=== PATIENT | male | born 1985 ===

== ENCOUNTER 2024-07-10 12:55 | Outpatient (AMB) | payer OTHER, SELFPAY ==
--- NOTE | 2024-07-10 13:00 | AM.OFFWIN_ITS ---
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 Patient has taken Tylenol and Benadryl for his pain and the swelling. Patient states the pain was significantly worse yesterday but has mostly resolved throughout the morning today. Patient denies having any headaches, visual changes, discharge from his eyes, fevers or chills. Patient denies any injury or trauma to his right eye prior to the onset of his symptoms. [facility] Social History Patient Tobacco Use Status: Never used Tobacco Review of Systems Const All systems reviewed & are unremarkable except as noted in HPI and below Eyes Denies blind spots, Denies blurry vision, Denies exophthalmos, Denies change in vision, Denies decreased night vision, Denies diplopia, Denies eye discharge, Denies other visual disturbances and Reports eye pain (swelling right upper eyelid) ENT Reports no additional complaints Card Reports no additional complaints Resp Reports no additional complaints Reports no additional complaints Musc Reports no additional complaints Skin/Breast Reports system reviewed and no additional complaints, except as documented and Reports as per HPI (mild redness right upper eyelid) Neuro Reports no additional complaints Psych Reports no additional complaints Endo Reports no additional complaints Philipp/Lymph Reports no additional complaints Aller/Immun Reports no additional complaints Physical Exam Vital Signs: BMI result Body Mass Index 33.4 Const General: cooperative, healthy appearing, comfortable, no acute distress, well developed, alert, awake and Physically active Nutritional Appearance: overweight Orientation/consciousness: patient oriented x3 Limitations: no limitations HEENT Head: Yes normal to inspection and Yes normocephalic Eyes Other: Right upper eyelid: right upper eyelid edematous with erythema noted superior of the mucocutaneous border with mild discomfort to palpation; 1mm purulent les ion noted at mucocutaneous border of right upper eyelid Visual Acuña: normal visual acuña by confrontation Alignment and Position: alignment normal Periorbital: periorbital findings normal Eyelids: Yes eyelid abnormality (as above) Conjunctivae: conjunctivae normal Sclerae: sclerae normal Corneas: corneas normal Pupils: Equal, round and reactive pupils present EOM: EOMs intact bilaterally Direct Ophthalmoscopy: normal light reflex and no photophobia Neuro General: patient oriented x3 Cranial nerves: Yes Equal, round and reactive pupils present Psych Appearance: grossly normal Mental Status: mental status grossly normal Insight: Good insight present (Psych) Judgement: Good judgement present (Psych) Assessment & Plan Assessment & Plan (1) Hordeolum externum (stye): Comment: No clinical evidence of a periorbital cellulitis or conjunctivitis. Patient is afebrile and in no acute distress. Code(s): H00.019 - Hordeolum externum unspecified eye, unspecified eyelid Qualifiers: Laterality: right Eyelid: upper Qualified Code(s): H00.011 - Hordeolum externum right upper eyelid Plan: Patient is encouraged to use warm compresses (tea bag or washcloth) 5 times daily and Tylenol as needed for discomfort. Patient will follow up at the walk- in for any worsening symptoms. Coding Level of Care Code Est Pt Level 3 (24175) Diagnoses Hordeolum externum of right upper eyelid H00.011 Laterality: right Eyelid: upper Time Spent (min) 20
[2024-07-10 13:01] VITALS: BP 120/78; PULSE 78; TEMP 36.7; O2SAT 99; BMI 33.4
--- OUTSIDE RECORDS SUMMARY | 2024-07-10 15:40 | XMS_ITS | Clinical Summary ---
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 Muscle spasm 04/02/2021 Polyarthralgia 04/02/2021 Obesity (BMI 35.0-39.9 without comorbidity) 10/16 Immunizations Name Administration Dates Next Due Tdap Tetanus diptheria acell ular pertussis (Boostrix; Adacel) 7yo and older 11/02/2012 Surgical History Surgery Date Site/Laterality Comments OTHER SURGICAL HISTORY PROCEDURE: DENIES PREVIOUS SURGERY Medical History Medical History Date Comments Foot pain DX:Foot pain Family History Medical History Relation Name Comments No Known Problems Father Arthritis Maternal Grandmother fibromy algia, DMII No Known Problems Mother Relation Name Status Comments Father Alive Maternal Grandmother Mother Alive No contact with parents Paternal Grandfather DM Paternal Grandmother Alive DM Sister 1 Alive Healthy Sister 2 Alive Healthy Son 1 Alive Healthy Son 2 Alive Healthy Social History Tobacco Use Types Packs/Day Years Used Date Smoking Tobacco: Never Smokeless Tobacco: Never Alcohol Use Standard Drinks/Week Comments Yes 0 (1 standard drink = 0.6 oz pur e alcohol) Sex and Gender Information Value Date Recorded Sex Assigned at Not on file Legal Sex Male 9:06 AM EST Gender Identity Not on file Sexual Orientation Not on file Obstetrics History Last Filed Vital Signs Vital Sign Reading Time Taken Comments Blood Pressure 122/78 07/24/2021 1:36 PM EDT Sit ting L Arm Pulse 70 07/24/2021 1:36 PM EDT Temperature - - Respiratory Rate - - Oxygen Saturation - - Inhaled Oxygen Concentration - - Weight 110 kg (243 lb) 10/05/2022 11:13 AM EDT Height 175.3 cm (5' 9 ) 10/05/2022 11:13 AM EDT Body Mass Index 35.88 10/05/2022 11:13 AM EDT Plan of Treatment Upcoming Encounters Date Type Department Care Team (Late st Contact Info) Description 07/13/2024 3:30 PM EDT Office Visit Adult Medicine - [facility] [address] [place] [address] [place] [facility] [address] [place] [address] Health Maintenance Due Date Last Done Comments Hepatitis B Vaccines (1 of 3 - 19+ 3-dose series) 10/24/2006 Depression Screening 03/21/2022 HIV Screening 03/21/2022 Hepatitis C Screening 03/21/2022 Social Influencers of Health Screening 03/21/2022 DTaP,Tdap,and Td Vaccines (2 - Td or Tdap) 11/02/2022 11/02/2012 COVID-19 Vaccine ( - 2023-2 5 season) 2023 Influenza Vaccine (#1) 2023 Cholesterol Screening (Lipid Panel) 10/22/2025 10/22/2020 HIB Vaccines Aged Out No longer eligi ble based on patient's age to complete this topic HPV Vaccines Aged Out No longer eligi ble based on patient's age to complete this topic Hepatitis A Vaccines Aged Out No long er eligible based on patient's age to complete this topic IPV Vaccines Aged Out No longer eligi ble based on patient's age to complete this topic MMR Vaccines Aged Out No longer eligi ble based on patient's age to complete this topic Meningococcal ACWY Vaccine Aged Out N o longer eligible based on patient's age to complete this topic Meningococcal B Vacine Aged Out No lo nger eligible based on patient's age to complete this topic Pneumococcal Vaccine: Pediat rics (0 to 5 Years) and At-Risk Patients (6 to 64 Years) Aged Out No longer eligi ble based on patient's age to complete this topic RSV Immunization Patients Un josé luis 20 months Aged Out No longer eligible b ased on patient's age to complete this topic Varicella Vaccines Aged Out No longer eligible based on patient's age to complete this topic Procedures Procedure Name Priority Date/Time Associated Diagnosis Comments LIPID PANEL Routine 10/22/2020 from Last 3 Months or Most Recently Relevant to Health Maintenance Results * Lipid panel (10/22/2020) LDL/HDL Ratio 3 0 - 4 Triglycerides 96 0 - 150 mg/dL Cholesterol 171 0 - 200 mg/dL HDL 63 >=40 mg/dL LDL Cholesterol 89 0 - 100 mg/dL Blood Venous blood specimen / Unknown us Historical Provider LAB BLOOD ORDERABLES Chanel l Result from Last 3 Months or Most Recently Relevant to Health Maintenance Care Teams Pasting Machine Operator Relationship Specialty Start Date End Date Cher Ardon MD [address] [place] [id number] PCP - General Internal Medicine 10/21/20
== END 2024-07-10 13:38 | disposition home or self-care (01) ==
PROVIDERS: Visit Provider Physician Assistant
DX: H00.011 Hordeolum externum right upper eyelid (principal)

== ENCOUNTER → 2024-07-10 12:55 | Outpatient (BNVA) | payer OTHER, SELFPAY | PROVIDERS: Visit Provider Physician Assistant | DX: H00.011 Hordeolum externum right upper eyelid (principal) | CPT/HCPCS: 99212 ==